=== PATIENT | female | born 1940 | race Two or more races ===

== ENCOUNTER 2023-10-24 15:01 | Emergency (ER) | payer OTHER ==
[~2023-10-24] VITALS: Ht 157.5 cm; Wt 59.0 kg
== END 2023-10-24 18:03 | disposition home or self-care (01) ==
LOC: ER 15:02
DX: M54.2 Cervicalgia (principal); I10 Essential (primary) hypertension
CPT/HCPCS: 72040; 96372; 99283; J1885; J2360

== ENCOUNTER 2025-01-15 15:27 | Inpatient (IN) | payer OTHER ==
[~2025-01-15] VITALS: Ht 152.4 cm; Wt 54.9 kg
--- NOTE | 2025-01-15 16:18 | NUR ---
HIJA REFIERE QUE JEFFREY HIJA TIENE DOLOR EPIGASTRICO CON NAUSEAS DESDE HACE 2 GAR
[2025-01-15] MEDS ORDERED: ATORVASTATIN CA40 MG PO (16:19)
[2025-01-15] MEDS ORDERED: MEMANTINE HCL5 MG PO (16:19)
[2025-01-15] MEDS ORDERED: KETOROLAC TROMETHAMINE 30 MG VIAL IV ONE (16:45)
[2025-01-15] MEDS ORDERED: PIPERACILLIN/TAZOBACTAM SODIUM 3.375 GM VIAL IV ONE ×2 (16:45→17:10)
[2025-01-15] MEDS ORDERED: FAMOtidine 10 MG/ML (4ML VIAL) IV ONE (16:45)
[2025-01-15] MEDS ORDERED: 0.9 % SODIUM CHLORIDE 1,000 ML IV ONE (16:45)
[2025-01-15] MEDS ORDERED: KETOROLAC TROMETHAMINE 30 MG VIAL ONE (17:10)
[2025-01-15] MEDS ORDERED: FAMOTIDINE/PF 20 MG/2 ML VIAL ONE (17:10)
[2025-01-15 17:14] LABS: HEMATOCRIT 45.6 % (36.0-45.00); HEMOGLOBIN 15.6 g/dL (12.0-15.00); MEAN CELL VOLUME 90.7 fL (80.00-100.00); MEAN CORPUSCULAR HGB CONC 34.2 g/dl (32.0-36.0); PLATELET COUNT 364 K/uL (150-450); RED BLOOD COUNT 5.03 M/uL (4.00-6.00); RED CELL DISTRIBUTION WIDTH 13.5 % (11.5-14.5)
--- NOTE | 2025-01-15 17:38 | NUR ---
SE LE ORIENTA A PACIENTE SOBRE LA ORDEN MEDICA, REFIERE ENTENDER LAS MISMAS. SE CANALIZA Y SE LE COLOCA EL IVF'S, SE LE VIPUL LAS MUETRAS Y SE LE ADMINSITRAN LOS MEDICAMENTO LINA LA ORDEN MEDICA.
[2025-01-15 17:57] LABS: PH,URINE 5.5 (5.0-8.0); URINE APPEARANCE Clear; URINE BILIRRUBIN Small (NEGATIVE); URINE BLOOD Moderate; URINE COLOR Dark Yellow; URINE GLUCOSE Negative (NEGATIVE); URINE KETONE 15 (NEGATIVE); URINE LEUKOCYTE Small; URINE NITRATE Negative; URINE PROTEIN 30 (NEGATIVE)
[2025-01-15 18:01] LABS: URINE EPITHELIAL CELLS 39.8 uL (0.0-38.8); URINE RBC 192.3 uL (0.0-20.8); URINE WBC 48.5 uL (0.0-23.2)
[2025-01-15 18:22] LABS: INR 1.05; PARTIAL THROMBOPLASTIN TIME 25.3 SECONDS (22.0-34.0); PROTHROMBIN TIME 11.4 SECONDS (9.0-11.5)
[2025-01-15 18:27] LABS: ALBUMIN 3.2 gm/dL (3.4-5.0); BILIRUBIN TOTAL 1.31 mg/dL (0.3-1.2); CALCIUM 9.3 mg/dL (8.5-10.1); CREATININE SERUM 0.62 mg/dL (0.55-1.02); GFR 92.15; GLOBULINA 4.7 G/DL (2.4-3.5); POTASSIUM 4.23 mEq/L (3.5-5.1); TOTAL PROTEIN 7.9 gm/dL (6.4-8.2)
[2025-01-15 18:42] LABS: URINE CAST 1.17 uL (0.0-1.40); URINE MUCUS MODERATE
[2025-01-15] MEDS ORDERED: ONDANSETRON HCL 4 MG in 0.9 % SODIUM CHLORIDE 50 ML IV PRN (21:30)
[2025-01-15] MEDS ORDERED: 0.9 % SODIUM CHLORIDE 1,000 ML IV SCH (21:30)
[2025-01-15] MEDS ORDERED: MORPHINE SULFATE 4 MG/ML CARTRIDGE IV PRN (21:30)
[2025-01-15] MEDS ORDERED: CEFAZOLIN SODIUM 1,000 MG VIAL ONE (22:27)
[2025-01-16] MEDS ORDERED: PIPERACILLIN/TAZOBACTAM SODIUM 3.375 GM in DEXTROSE 5 % IN WATER 100 ML IV SCH
[2025-01-16] MEDS ORDERED: MORPHINE SULFATE 2 MG/ML CARTRIDGE IV ONE (02:10)
[2025-01-16] MEDS ORDERED: SUGAMMADEX SODIUM 200 MG/2 ML VIAL IV ONE (02:30)
[2025-01-16 08:17] VITALS: BP 108/63; O2SAT 98
[2025-01-16] MEDS ORDERED: FAMOTIDINE/PF 20 MG in 0.9 % SODIUM CHLORIDE 8 ML IV PUSH SCH (09:00)
[2025-01-16] MEDS ORDERED: ENOXAPARIN SODIUM 40 MG/0.4 ML SYRINGE SUBCUTANEO SCH (09:00)
[2025-01-16 16:59] VITALS: BP 115/60
[2025-01-16] MEDS ORDERED: QUETIAPINE FUMARATE 25 MG TABLET PO SCH (17:00)
[2025-01-16 17:04] VITALS: BP 175/68
[2025-01-18 01:59] VITALS: BP 159/69; O2SAT 98
[2025-01-18 07:00] LABS: HEMATOCRIT 33.2 % (36.0-45.00); HEMOGLOBIN 11.2 g/dL (12.0-15.00); MEAN CELL VOLUME 90.2 fL (80.00-100.00); MEAN CORPUSCULAR HEMOGLOBIN 30.4 pg (27.00-32.0); MEAN CORPUSCULAR HGB CONC 33.7 g/dl (32.0-36.0); PLATELET COUNT 272 K/uL (150-450); RED BLOOD COUNT 3.68 M/uL (4.00-6.00); RED CELL DISTRIBUTION WIDTH 13.9 % (11.5-14.5)
[2025-01-18 07:22] LABS: COVID-19 AG NEGATIVE (NEGATIVE)
[2025-01-18 07:40] LABS: CALCIUM 8.5 mg/dL (8.5-10.1); CREATININE SERUM 0.47 mg/dL (0.55-1.02); GFR 126.86; GLOBULINA 3.4 G/DL (2.4-3.5); POTASSIUM 3.08 mEq/L (3.5-5.1); TOTAL PROTEIN 5.4 gm/dL (6.4-8.2)
[2025-01-18 09:14] VITALS: BP 178/84
[2025-01-18] MEDS ORDERED: MAGNESIUM SULFATE IN WATER 50 ML IV NR (11:15)
[2025-01-18] MEDS ORDERED: POTASSIUM CHLORIDE 10 MEQ CAPSULE PO SCH (12:00)
[2025-01-18] MEDS ORDERED: POTASSIUM CHLORIDE 20MEQ/100ML H2O PB IV NR (12:15)
[2025-01-18] MEDS ORDERED: ENALAPRILAT DIHYDRATE 1.25 MG/ML VIAL IV PRN (17:15)
[2025-01-18] MEDS ORDERED: AMLODIPINE BESYLATE 5 MG TABLET PO SCH (17:15)
[2025-01-18 17:56] VITALS: BP 181/88; O2SAT 98
[2025-01-19 02:01] VITALS: BP 173/80; O2SAT 96
[2025-01-19 09:33] VITALS: BP 180/88; O2SAT 94
[2025-01-19] MEDS ORDERED: SODIUM CHLORIDE 0.45 % 1,000 ML IV SCH (12:45)
[2025-01-19] MEDS ORDERED: LOSARTAN POTASSIUM 25 MG TABLET PO NR (13:00)
[2025-01-19 16:02] LABS: CALCIUM 8.8 mg/dL (8.5-10.1); CREATININE SERUM 0.38 mg/dL (0.55-1.02); GFR 162.13; POTASSIUM 3.65 mEq/L (3.5-5.1)
[2025-01-19 16:56] VITALS: BP 151/79
[2025-01-19] MEDS ORDERED: AMLODIPINE BESYLATE 5 MG TABLET PO SCH (17:00)
[2025-01-19] MEDS ORDERED: DIATRIZOATE MEGLUMINE, SODIUM 30 ML BOTTLE PO NR (18:00)
[2025-01-20 03:06] VITALS: BP 162/79; O2SAT 100
[2025-01-20 06:47] LABS: HEMATOCRIT 35.5 % (36.0-45.00); HEMOGLOBIN 12.1 g/dL (12.0-15.00); MEAN CELL VOLUME 91.2 fL (80.00-100.00); PLATELET COUNT 316 K/uL (150-450); RED BLOOD COUNT 3.89 M/uL (4.00-6.00); RED CELL DISTRIBUTION WIDTH 13.7 % (11.5-14.5)
[2025-01-20] MEDS ORDERED: FAMOTIDINE/PF 20 MG/2 ML VIAL ONE (07:54)
[2025-01-20 07:57] VITALS: BP 166/89
[2025-01-20] MEDS ORDERED: LOSARTAN POTASSIUM 25 MG TABLET PO SCH (09:00)
[2025-01-20] MEDS ORDERED: PIPERACILLIN/TAZOBACTAM SODIUM 3.375 GM VIAL IV ONE (15:52)
[2025-01-20] MEDS ORDERED: POLYETHYLENE GLYCOL 3350 17 GM BLIST.PACK PO SCH (17:00)
[2025-01-20 18:39] VITALS: BP 116/70; O2SAT 98
[2025-01-20] MEDS ORDERED: QUETIAPINE FUMARATE 25 MG TABLET PO SCH (21:00)
[2025-01-20] MEDS ORDERED: fentaNYL CITRATE 50 MCG/ML AMPUL IV PUSH ONE (21:15)
[2025-01-21 02:12] VITALS: BP 147/76; O2SAT 89
[2025-01-21 07:19] LABS: CALCIUM 8.3 mg/dL (8.5-10.1); CREATININE SERUM 0.37 mg/dL (0.55-1.02); GFR 167.2; POTASSIUM 3.03 mEq/L (3.5-5.1)
[2025-01-21] MEDS ORDERED: AMINO ACIDS 1 EACH TABLET PO SCH (09:00)
[2025-01-21 09:56] VITALS: BP 166/80; O2SAT 90
[2025-01-21] MEDS ORDERED: DEXTROSE 5 %-0.45 % SOD CHLORD 1,000 ML IV SCH (10:30)
[2025-01-21 17:00] VITALS: BP 133/70
[2025-01-22 03:30] VITALS: BP 115/66; O2SAT 96
[2025-01-22 09:09] VITALS: BP 125/64; O2SAT 93
[2025-01-22 17:27] VITALS: BP 130/70
[2025-01-22] MEDS ORDERED: ACETAMINOPHEN 500 MG GEL..CAP PO PRN (19:30)
[2025-01-23 03:38] VITALS: BP 121/64; O2SAT 92
[2025-01-23 06:47] LABS: ALBUMIN 1.6 gm/dL (3.4-5.0); BILIRUBIN TOTAL 0.57 mg/dL (0.3-1.2); CALCIUM 7.6 mg/dL (8.5-10.1); CREATININE SERUM 0.32 mg/dL (0.55-1.02); GFR 197.69; GLOBULINA 2.9 G/DL (2.4-3.5); TOTAL PROTEIN 4.5 gm/dL (6.4-8.2)
[2025-01-23 07:40] LABS: POTASSIUM 2.61 mEq/L (3.5-5.1)
[2025-01-23] MEDS ORDERED: POTASSIUM CHLORIDE IN WATER 40 MEQ/100 ML PIGGYBAG IV NR (08:30)
[2025-01-23 08:31] VITALS: BP 114/62
[2025-01-23] MEDS ORDERED: ACETAMINOPHEN 500 MG GEL..CAP PO PRN (09:40)
[2025-01-23] MEDS ORDERED: POTASSIUM CHLORIDE 10 MEQ CAPSULE PO NR (11:00)
[2025-01-23] MEDS ORDERED: POTASSIUM CHLORIDE IN WATER 100 ML IV NR (14:30)
[2025-01-23] MEDS ORDERED: MAGNESIUM SULFATE IN WATER 50 ML IV NR (14:30)
[2025-01-23 15:12] LABS: HEMOGLOBIN 11.7 g/dL (12.0-15.00); MEAN CELL VOLUME 89.9 fL (80.00-100.00); MEAN CORPUSCULAR HGB CONC 33.4 g/dl (32.0-36.0); PLATELET COUNT 300 K/uL (150-450); RED CELL DISTRIBUTION WIDTH 13.6 % (11.5-14.5)
[2025-01-23 15:38] LABS: ALBUMIN 1.7 gm/dL (3.4-5.0); CALCIUM 7.9 mg/dL (8.5-10.1); MAGNESIUM 1.5 mg/dL (1.8-2.4)
[2025-01-23 15:56] LABS: CREATININE SERUM 0.36 mg/dL (0.55-1.02); GFR 172.57; PHOSPHOROUS 2.3 mg/dL (2.5-4.9)
[2025-01-23 16:03] LABS: POTASSIUM 2.79 mEq/L (3.5-5.1)
[2025-01-23] MEDS ORDERED: POTASSIUM CHLORIDE 10 MEQ CAPSULE PO SCH ×2 (17:00)
[2025-01-23 18:00] VITALS: BP 121/73; O2SAT 99
[2025-01-24] VITALS: BP 115/62; O2SAT 96
[2025-01-24 06:14] LABS: HEMOGLOBIN 11.2 g/dL (12.0-15.00); MEAN CELL VOLUME 89.3 fL (80.00-100.00); MEAN CORPUSCULAR HEMOGLOBIN 30.3 pg (27.00-32.0); PLATELET COUNT 324 K/uL (150-450); RED CELL DISTRIBUTION WIDTH 13.5 % (11.5-14.5)
[2025-01-24 06:47] LABS: ALBUMIN 1.6 gm/dL (3.4-5.0); BILIRUBIN TOTAL 0.56 mg/dL (0.3-1.2); CALCIUM 7.6 mg/dL (8.5-10.1); CREATININE SERUM 0.33 mg/dL (0.55-1.02); GFR 190.79; GLOBULINA 3.1 G/DL (2.4-3.5); POTASSIUM 3.21 mEq/L (3.5-5.1); TOTAL PROTEIN 4.7 gm/dL (6.4-8.2)
[2025-01-24 08:15] LABS: FECAL LEUKOCYTES NEGATIVE (NEGATIVE)
[2025-01-24 09:08] VITALS: BP 113/57; O2SAT 97
[2025-01-24 11:08] LABS: PH,URINE 6.5 (5.0-8.0); URINE APPEARANCE Clear; URINE BILIRRUBIN Negative (NEGATIVE); URINE BLOOD Negative; URINE COLOR Yellow; URINE GLUCOSE Negative (NEGATIVE); URINE KETONE Negative (NEGATIVE); URINE LEUKOCYTE Negative; URINE NITRATE Negative; URINE PROTEIN Negative (NEGATIVE); URINE UROBILINOGEN 0.2 E.U./dl
[2025-01-24 11:10] LABS: URINE BACTERIA 9.7 uL (0.0-1933); URINE RBC 20.9 uL (0.0-20.8); URINE WBC 5.8 uL (0.0-23.2)
[2025-01-24] MEDS ORDERED: VANCOMYCIN HCL 125 MG CAPSULE PO SCH (14:00)
[2025-01-24 20:46] VITALS: BP 121/74; O2SAT 95
[2025-01-25 01:10] VITALS: BP 128/70; O2SAT 93
[2025-01-25 05:15] LABS: HEMATOCRIT 33.7 % (36.0-45.00); HEMOGLOBIN 11.2 g/dL (12.0-15.00); MEAN CELL VOLUME 91.2 fL (80.00-100.00); MEAN CORPUSCULAR HEMOGLOBIN 30.4 pg (27.00-32.0); MEAN CORPUSCULAR HGB CONC 33.3 g/dl (32.0-36.0); PLATELET COUNT 418 K/uL (150-450); RED CELL DISTRIBUTION WIDTH 13.7 % (11.5-14.5)
[2025-01-25 05:37] LABS: ALBUMIN 1.7 gm/dL (3.4-5.0); BILIRUBIN TOTAL 0.57 mg/dL (0.3-1.2); CALCIUM 7.6 mg/dL (8.5-10.1); CREATININE SERUM 0.32 mg/dL (0.55-1.02); GFR 197.69; GLOBULINA 3.1 G/DL (2.4-3.5); MAGNESIUM 1.6 mg/dL (1.8-2.4); POTASSIUM 3.45 mEq/L (3.5-5.1); TOTAL PROTEIN 4.8 gm/dL (6.4-8.2)
[2025-01-25 05:47] LABS: PHOSPHOROUS 1.8 mg/dL (2.5-4.9)
[2025-01-25 08:00] VITALS: BP 121/60; O2SAT 97
[2025-01-25] MEDS ORDERED: MAGNESIUM SULFATE IN WATER 50 ML IV NR (09:00)
[2025-01-25] MEDS ORDERED: POTASSIUM CHLORIDE 10 MEQ CAPSULE PO SCH (09:00)
[2025-01-25] MEDS ORDERED: POTASSIUM PHOS,M-BASIC-D-BASIC 15 MM in 0.9 % SODIUM CHLORIDE 250 ML IV NR (12:00)
[2025-01-25 18:27] VITALS: BP 112/62; O2SAT 96
[2025-01-26 03:00] VITALS: BP 109/57
[2025-01-26 06:23] LABS: HEMATOCRIT 34.4 % (36.0-45.00); HEMOGLOBIN 11.9 g/dL (12.0-15.00); MEAN CELL VOLUME 90.1 fL (80.00-100.00); MEAN CORPUSCULAR HEMOGLOBIN 31.1 pg (27.00-32.0); MEAN CORPUSCULAR HGB CONC 34.5 g/dl (32.0-36.0); PLATELET COUNT 570 K/uL (150-450); RED BLOOD COUNT 3.82 M/uL (4.00-6.00); RED CELL DISTRIBUTION WIDTH 13.9 % (11.5-14.5)
[2025-01-26 06:48] LABS: ALBUMIN 1.8 gm/dL (3.4-5.0); BILIRUBIN TOTAL 0.64 mg/dL (0.3-1.2); CALCIUM 7.9 mg/dL (8.5-10.1); CREATININE SERUM 0.31 mg/dL (0.55-1.02); GFR 205.07; GLOBULINA 3.5 G/DL (2.4-3.5); POTASSIUM 5.11 mEq/L (3.5-5.1); TOTAL PROTEIN 5.3 gm/dL (6.4-8.2)
[2025-01-26] MEDS ORDERED: PIPERACILLIN/TAZOBACTAM SODIUM 3.375 GM VIAL IV ONE (08:13)
[2025-01-26 09:11] VITALS: BP 109/67; O2SAT 96
[2025-01-26 15:39] LABS: URINE APPEARANCE Clear; URINE BILIRRUBIN Negative (NEGATIVE); URINE BLOOD NHT; URINE COLOR Yellow; URINE GLUCOSE Negative (NEGATIVE); URINE KETONE Negative (NEGATIVE); URINE LEUKOCYTE Negative; URINE NITRATE Negative; URINE PROTEIN Negative (NEGATIVE); URINE UROBILINOGEN 0.2 E.U./dl
[2025-01-26 15:42] LABS: URINE BACTERIA 9.7 uL (0.0-1933); URINE EPITHELIAL CELLS 116.5 uL (0.0-38.8); URINE RBC 45.6 uL (0.0-20.8); URINE WBC 7.2 uL (0.0-23.2)
[2025-01-26 16:17] LABS: URINE CAST 0.44 uL (0.0-1.40)
[2025-01-26 18:02] VITALS: BP 116/64; O2SAT 97
[2025-01-27 00:16] VITALS: BP 100/56
[2025-01-27 05:54] LABS: HEMATOCRIT 33.6 % (36.0-45.00); HEMOGLOBIN 11.3 g/dL (12.0-15.00); MEAN CELL VOLUME 91.6 fL (80.00-100.00); MEAN CORPUSCULAR HEMOGLOBIN 30.8 pg (27.00-32.0); MEAN CORPUSCULAR HGB CONC 33.6 g/dl (32.0-36.0); PLATELET COUNT 572 K/uL (150-450); RED BLOOD COUNT 3.67 M/uL (4.00-6.00); RED CELL DISTRIBUTION WIDTH 13.8 % (11.5-14.5)
[2025-01-27 06:36] LABS: ALBUMIN 1.8 gm/dL (3.4-5.0); BILIRUBIN TOTAL 0.43 mg/dL (0.3-1.2); CALCIUM 8.2 mg/dL (8.5-10.1); CREATININE SERUM 0.36 mg/dL (0.55-1.02); GFR 172.57; GLOBULINA 3.4 G/DL (2.4-3.5); POTASSIUM 4.32 mEq/L (3.5-5.1); TOTAL PROTEIN 5.2 gm/dL (6.4-8.2)
[2025-01-27 09:34] VITALS: BP 115/63; O2SAT 97
[2025-01-27] MEDS ORDERED: LIDOCAINE HCL 1% 10ML VIAL PERCUT ONE (11:15)
[2025-01-27] MEDS ORDERED: LIDOCAINE HCL 1% 10ML VIAL PERCUT NR (12:00)
[2025-01-27] MEDS ORDERED: MORPHINE SULFATE 2 MG/ML SYRINGE IV NR (12:00)
[2025-01-27 17:22] VITALS: BP 117/65; O2SAT 96
[2025-01-27] MEDS ORDERED: fentaNYL CITRATE 50 MCG/ML AMPUL IV PUSH ONE (18:30)
[2025-01-27] MEDS ORDERED: MIDAZOLAM HCL 2 MG/2 ML VIAL IV PUSH ONE (18:30)
[2025-01-28 02:17] VITALS: BP 117/69; O2SAT 96
[2025-01-28] MEDS ORDERED: PIPERACILLIN/TAZOBACTAM SODIUM 3.375 GM VIAL IV ONE (08:22)
[2025-01-28 09:24] LABS: ALBUMIN 1.8 gm/dL (3.4-5.0); BILIRUBIN TOTAL 0.36 mg/dL (0.3-1.2); CALCIUM 7.8 mg/dL (8.5-10.1); CREATININE SERUM 0.38 mg/dL (0.55-1.02); GFR 162.13; GLOBULINA 3.3 G/DL (2.4-3.5); MAGNESIUM 1.6 mg/dL (1.8-2.4); POTASSIUM 4.32 mEq/L (3.5-5.1); TOTAL PROTEIN 5.1 gm/dL (6.4-8.2)
[2025-01-28 10:20] LABS: HEMATOCRIT 30.9 % (36.0-45.00); HEMOGLOBIN 10.5 g/dL (12.0-15.00); MEAN CELL VOLUME 92.1 fL (80.00-100.00); MEAN CORPUSCULAR HEMOGLOBIN 31.2 pg (27.00-32.0); MEAN CORPUSCULAR HGB CONC 33.9 g/dl (32.0-36.0); RED BLOOD COUNT 3.36 M/uL (4.00-6.00); RED CELL DISTRIBUTION WIDTH 13.9 % (11.5-14.5)
[2025-01-28 10:21] LABS: PLATELET COUNT 607 K/uL (150-450)
[2025-01-28 15:35] VITALS: BP 117/65; O2SAT 95
[2025-01-29 02:31] VITALS: BP 111/64; O2SAT 96
[2025-01-29] MEDS ORDERED: PIPERACILLIN/TAZOBACTAM SODIUM 3.375 GM VIAL IV ONE (08:00)
[2025-01-29 09:19] VITALS: BP 104/59; O2SAT 96
[2025-01-29 17:59] VITALS: BP 123/63; O2SAT 94
[2025-01-30 01:56] VITALS: BP 118/61
[2025-01-30 06:34] LABS: HEMATOCRIT 30.8 % (36.0-45.00); HEMOGLOBIN 10.6 g/dL (12.0-15.00); MEAN CELL VOLUME 91.4 fL (80.00-100.00); MEAN CORPUSCULAR HEMOGLOBIN 31.3 pg (27.00-32.0); MEAN CORPUSCULAR HGB CONC 34.3 g/dl (32.0-36.0); PLATELET COUNT 632 K/uL (150-450); RED BLOOD COUNT 3.37 M/uL (4.00-6.00); RED CELL DISTRIBUTION WIDTH 13.9 % (11.5-14.5)
[2025-01-30 07:32] LABS: ALBUMIN 1.8 gm/dL (3.4-5.0); BILIRUBIN TOTAL 0.42 mg/dL (0.3-1.2); CALCIUM 8.1 mg/dL (8.5-10.1); CREATININE SERUM 0.45 mg/dL (0.55-1.02); GFR 133.39; GLOBULINA 3.5 G/DL (2.4-3.5); MAGNESIUM 1.6 mg/dL (1.8-2.4); POTASSIUM 3.91 mEq/L (3.5-5.1); TOTAL PROTEIN 5.3 gm/dL (6.4-8.2)
[2025-01-30 11:32] VITALS: BP 107/69; O2SAT 95
[2025-01-30] MEDS ORDERED: levoFLOXacin IN DEXTROSE 5 % 5 MG/ML PIGGYBAG IV SCH (12:00)
[2025-01-30] MEDS ORDERED: CEFTRIAXONE SODIUM 2,000 MG VIAL IV SCH (12:00)
[2025-01-30] MEDS ORDERED: METROnidazole 500 MG TABLET PO SCH (17:00)
[2025-01-30 18:10] VITALS: BP 117/65; O2SAT 95
[2025-01-31 01:00] VITALS: BP 111/61; O2SAT 99
[2025-01-31] MEDS ORDERED: DIATRIZOATE MEGLUMINE, SODIUM 30 ML BOTTLE PO NR (06:00)
[2025-01-31 06:50] LABS: HEMATOCRIT 29.7 % (36.0-45.00); HEMOGLOBIN 10.3 g/dL (12.0-15.00); MEAN CELL VOLUME 90.4 fL (80.00-100.00); MEAN CORPUSCULAR HEMOGLOBIN 31.3 pg (27.00-32.0); MEAN CORPUSCULAR HGB CONC 34.7 g/dl (32.0-36.0); PLATELET COUNT 630 K/uL (150-450); RED BLOOD COUNT 3.29 M/uL (4.00-6.00)
[2025-01-31 07:21] LABS: ALBUMIN 1.8 gm/dL (3.4-5.0); BILIRUBIN TOTAL 0.22 mg/dL (0.3-1.2); CALCIUM 8.1 mg/dL (8.5-10.1); CREATININE SERUM 0.33 mg/dL (0.55-1.02); GFR 190.79; GLOBULINA 3.5 G/DL (2.4-3.5); POTASSIUM 4.01 mEq/L (3.5-5.1); TOTAL PROTEIN 5.3 gm/dL (6.4-8.2)
[2025-01-31 09:35] VITALS: BP 114/63; O2SAT 96
[2025-01-31 17:32] VITALS: BP 120/64; O2SAT 95
[2025-02-01 01:19] VITALS: BP 111/66; O2SAT 95
[2025-02-01 06:33] LABS: HEMATOCRIT 29.5 % (36.0-45.00); MEAN CORPUSCULAR HEMOGLOBIN 30.5 pg (27.00-32.0); MEAN CORPUSCULAR HGB CONC 33.9 g/dl (32.0-36.0); PLATELET COUNT 583 K/uL (150-450); RED BLOOD COUNT 3.28 M/uL (4.00-6.00); RED CELL DISTRIBUTION WIDTH 14.3 % (11.5-14.5)
[2025-02-01 06:42] LABS: ALBUMIN 1.8 gm/dL (3.4-5.0); BILIRUBIN TOTAL 0.21 mg/dL (0.3-1.2); CALCIUM 8.2 mg/dL (8.5-10.1); CREATININE SERUM 0.36 mg/dL (0.55-1.02); GFR 172.57; GLOBULINA 3.3 G/DL (2.4-3.5); MAGNESIUM 1.5 mg/dL (1.8-2.4); POTASSIUM 3.61 mEq/L (3.5-5.1); TOTAL PROTEIN 5.1 gm/dL (6.4-8.2)
[2025-02-01 09:40] VITALS: BP 122/67
[2025-02-01 17:00] VITALS: BP 116/66; O2SAT 95
[2025-02-02 01:38] VITALS: BP 112/62; O2SAT 96
[2025-02-02 05:55] LABS: ALBUMIN 1.8 gm/dL (3.4-5.0); BILIRUBIN TOTAL 0.26 mg/dL (0.3-1.2); CALCIUM 8.4 mg/dL (8.5-10.1); CREATININE SERUM 0.35 mg/dL (0.55-1.02); GFR 178.27; GLOBULINA 3.3 G/DL (2.4-3.5); POTASSIUM 3.72 mEq/L (3.5-5.1); TOTAL PROTEIN 5.1 gm/dL (6.4-8.2)
[2025-02-02 06:17] LABS: HEMATOCRIT 29.2 % (36.0-45.00); MEAN CELL VOLUME 90.2 fL (80.00-100.00); MEAN CORPUSCULAR HGB CONC 34.3 g/dl (32.0-36.0); PLATELET COUNT 549 K/uL (150-450); RED BLOOD COUNT 3.23 M/uL (4.00-6.00); RED CELL DISTRIBUTION WIDTH 14.2 % (11.5-14.5)
[2025-02-02 08:30] VITALS: BP 108/62; O2SAT 98
== END 2025-02-02 13:33 | disposition home or self-care (01) | DRG 329 ==
LOC: ER 15:28 → MEDI 21:41
PROVIDERS: General Practice; Internal Medicine; Internal Medicine Infectious Disease; Student in an Organized Health Care Education/Training Program; ADMIT Internal Medicine; ATTEND Internal Medicine
PROC: 0DJW0ZZ Inspection of Peritoneum, Open Approach (ICD-10-PCS; 2025-01-15)
PROC: 0YQ70ZZ Repair Right Femoral Region, Open Approach (ICD-10-PCS; 2025-01-15)
PROC: 0YQ50ZZ Repair Right Inguinal Region, Open Approach (ICD-10-PCS; 2025-01-15)
PROC: 0D9670Z Drainage of Stomach with Drainage Device, Via Natural or Artificial Opening (ICD-10-PCS; 2025-01-15)
PROC: 0DB80ZZ Excision of Small Intestine, Open Approach (ICD-10-PCS; principal; 2025-01-15 21:00)
PROC: BW21YZZ Computerized Tomography (CT Scan) of Abdomen and Pelvis using Other Contrast (ICD-10-PCS; 2025-01-19)
PROC: 0W9G30Z Drainage of Peritoneal Cavity with Drainage Device, Percutaneous Approach (ICD-10-PCS; 2025-01-20)
PROC: BW21YZZ Computerized Tomography (CT Scan) of Abdomen and Pelvis using Other Contrast (ICD-10-PCS; 2025-01-26)
PROC: 0Y950ZZ Drainage of Right Inguinal Region, Open Approach (ICD-10-PCS; 2025-01-27)
PROC: 0W9G30Z Drainage of Peritoneal Cavity with Drainage Device, Percutaneous Approach (ICD-10-PCS; 2025-01-27)
DX: K41.30 Unilateral femoral hernia, with obstruction, without gangrene, not specified as recurrent (principal); K63.1 Perforation of intestine (nontraumatic); K65.1 Peritoneal abscess; F05 Delirium due to known physiological condition; K91.89 Other postprocedural complications and disorders of digestive system; K56.7 Ileus, unspecified; A04.72 Enterocolitis due to Clostridium difficile, not specified as recurrent; L02.214 Cutaneous abscess of groin; L76.34 Postprocedural seroma of skin and subcutaneous tissue following other procedure; A02.8 Other specified salmonella infections; K40.90 Unilateral inguinal hernia, without obstruction or gangrene, not specified as recurrent; G30.8 Other Alzheimer's disease; B96.1 Klebsiella pneumoniae [K. pneumoniae] as the cause of diseases classified elsewhere; B96.20 Unspecified Escherichia coli [E. coli] as the cause of diseases classified elsewhere; B95.2 Enterococcus as the cause of diseases classified elsewhere; B96.89 Other specified bacterial agents as the cause of diseases classified elsewhere; E87.6 Hypokalemia

== ENCOUNTER → 2025-02-13 10:51 | Outpatient (CLI) | payer OTHER ==
[~2025-02-13 10:51] MED LIST: ATORVASTATIN CA40 MG PO; MEMANTINE HCL5 MG PO
[2025-02-13 11:40] LABS: EOS # 0.09 (0.04-0.54); EOS % 1.7 % (0.7-7.0); HEMATOCRIT 37.9 % (34.1-44.9); HEMOGLOBIN 12.4 g/dL (11.2-15.7); LYMPH # 1.86 (1.18-3.74); LYMPH % 35.4 % (19.3-53.1); MEAN CORPUSCULAR HEMOGLOBIN 29.8 pg (25.6-32.2); MONO # 0.66 (0.24-0.82); NEUT # 2.59 (1.56-6.13); NEUT % 49.2 % (34.0-71.1); PLATELET COUNT 383 K/uL (163-369); RED BLOOD COUNT 4.16 M/uL (3.93-5.22); RED CELL DISTRIBUTION WIDTH 14.7 % (11.6-14.4)
[2025-02-13 11:49] LABS: MONO % 12.5 % (4.7-12.5)
[2025-02-13 11:59] LABS: PH,URINE 7.5 (5.0-8.0); URINE APPEARANCE Clear; URINE BILIRRUBIN Negative (NEGATIVE); URINE BLOOD Negative; URINE COLOR Dark Yellow; URINE GLUCOSE Negative (NEGATIVE); URINE KETONE Negative (NEGATIVE); URINE LEUKOCYTE Small; URINE NITRATE Negative; URINE PROTEIN Trace (NEGATIVE); URINE UROBILINOGEN 0.2 E.U./dl
[2025-02-13 12:04] LABS: URINE BACTERIA 14.6 uL (0.0-1933); URINE WBC 15.1 uL (0.0-23.2)
[2025-02-13 13:11] LABS: ALBUMIN 2.9 gm/dL (3.4-5.0); BILIRUBIN TOTAL 0.44 mg/dL (0.3-1.2); CALCIUM 9.1 mg/dL (8.5-10.1); CREATININE SERUM 0.49 mg/dL (0.55-1.02); GFR 120.91; GLOBULINA 3.7 G/DL (2.4-3.5); POTASSIUM 4.68 mEq/L (3.5-5.1); TOTAL PROTEIN 6.6 gm/dL (6.4-8.2)
== END | disposition home or self-care (01) ==
LOC: LAB 10:51
PROVIDERS: ATTEND Student in an Organized Health Care Education/Training Program
DX: L76.34 Postprocedural seroma of skin and subcutaneous tissue following other procedure (principal)

== ENCOUNTER 2025-02-13 11:37 | Outpatient (CLI) | payer OTHER | END 2025-02-13 11:50 | disposition home or self-care (01) | LOC: TOM 11:37 | PROVIDERS: ATTEND Student in an Organized Health Care Education/Training Program | DX: L76.34 Postprocedural seroma of skin and subcutaneous tissue following other procedure (principal) | CPT/HCPCS: 74177; Q9965 ==

== ENCOUNTER 2025-06-06 12:52 | Emergency (ER) | payer OTHER ==
[~2025-06-06] VITALS: Ht 157.5 cm; Wt 56.7 kg
[2025-06-06 15:02] LABS: BASO % 0.7 % (0.1-1.2); EOS # 0.08 (0.04-0.54); EOS % 1.1 % (0.7-7.0); LYMPH # 1.36 (1.18-3.74); LYMPH % 19.0 % (19.3-53.1); MEAN PLATELET VOLUME 10.40 fl (9.4-12.4); MONO # 0.56 (0.24-0.82); MONO % 7.8 % (4.7-12.5); NEUT # 5.10 (1.56-6.13); NEUT % 71.1 % (34.0-71.1); RED CELL DISTRIBUTION WIDTH 13.5 % (11.6-14.4)
[2025-06-06 15:28] LABS: COVID-19 AG NEGATIVE (NEGATIVE)
[2025-06-06 15:35] LABS: URINE APPEARANCE Clear; URINE BILIRRUBIN Negative (NEGATIVE); URINE BLOOD Trace; URINE COLOR Yellow; URINE GLUCOSE Negative (NEGATIVE); URINE KETONE Trace (NEGATIVE); URINE LEUKOCYTE Trace; URINE NITRATE Negative; URINE PROTEIN Negative (NEGATIVE); URINE UROBILINOGEN 0.2 E.U./dl
[2025-06-06 15:38] LABS: URINE BACTERIA 83.9 uL (0.0-1933); URINE EPITHELIAL CELLS 11.0 uL (0.0-38.8); URINE RBC 21.1 uL (0.0-20.8); URINE WBC 8.9 uL (0.0-23.2)
[2025-06-06 15:41] LABS: URINE CAST 0.14 uL (0.0-1.40)
[2025-06-06 15:46] LABS: INR 0.99
[2025-06-06 15:55] LABS: ALT/SGPT 11.0 U/L (12-78); AST/SGOT 7.0 U/L (15-37); BILIRUBIN TOTAL 0.74 mg/dL (0.3-1.2); BUN CREA RATIO 12.0 (7.0-25.0); CREATININE SERUM 0.58 mg/dL (0.55-1.02); GFR 99.53; GLOBULINA 4.8 G/DL (2.4-3.5); GLUCOSE FASTING 160.0 mg/dL (65-100); OSMOLALITY SERUM 285.0 MOSM/KG (275-295); TSH 0.632 uIU/mL (0.358-3.74)
[2025-06-06] MEDS ORDERED: BACTRIM DS TAB1 EACH PO (16:04)
[2025-06-06] MEDS ORDERED: PEPCID AC20 MG PO (16:04)
== END 2025-06-06 16:16 | disposition home or self-care (01) ==
LOC: ER 12:52
PROVIDERS: General Practice
DX: R10.2 Pelvic and perineal pain (principal); R53.1 Weakness; L65.9 Nonscarring hair loss, unspecified; N39.0 Urinary tract infection, site not specified; Z20.822 Contact with and (suspected) exposure to COVID-19